=== PATIENT | male | born 1965 | race Caucasian/White ===

== ENCOUNTER 2016-10-05 19:29 | Emergency (ER) | payer OTHER ==
--- NOTE | 2016-10-05 23:45 | DIAGNOSTIC IMAGING REPORT ---
PROCEDURE: XR HIP 2VW W W/O AP PELVIS-RT INDICATION: PAIN TECHNIQUE: AP view of the pelvis and hips with lateral view of the right hip. COMPARISON: CT 01/18/2016 FINDINGS: RIGHT HIP: Right hip prosthesis in place. No dislocation. There is foreshortening of the prosthetic femoral neck. Lucency along the superior aspect of the proximal femoral metaphysis. There is a foreign body encircling the proximal femur and crossing the joint line which appears to be something like a chain of beads. Moderate overlying soft tissue thickening and edema. PELVIS: Normal mineralization. Intact pelvic rings. Mild to moderate degenerative change in the left hip joint with decreased offset of the femoral head neck junction suggestive of hip dysplasia and possibly cam type femoral acetabular impingement. Pelvic bowel gas pattern and adjacent soft tissues are normal. IMPRESSION: 1. Right hip arthroplasty. 2. Osseous lucency adjacent to the proximal femoral prosthesis. In comparison with prior films recommended. Osteomyelitis is not excluded. 3. Hip dysplasia with probably femoral acetabular impingement on the left. 4. A chain of beads type foreign body surrounding/overlying the right hip.
--- NOTE | 2016-10-05 23:49 | DIAGNOSTIC IMAGING REPORT ---
PROCEDURE: US VENOUS - RIGHT EXT INDICATION: PAIN TECHNIQUE: Duplex sonography of the deep venous system in the right lower extremity was performed. Compression and augmentation techniques were used. COMPARISON: None. FINDINGS: Common femoral vein is partially compressible and demonstrates eccentric thickening of the wall. The proximal superficial femoral vein lumen is irregular with wall thickening. Color Doppler imaging demonstrates nonocclusive clot. The mid common femoral vein demonstrates no compressibility or color Doppler flow suggestive of complete occlusion. Adjacent artery is patent. Distal common femoral vein is not well seen secondary to extensive scar tissue. Popliteal vein is completely occluded. Calf veins were not well visualized. There is IV access and one of the calf veins. IMPRESSION: 1. Occlusive deep venous thrombosis from the popliteal vein in the mid superficial femoral vein. Diminutive size of the veins suggests chronic clot. 2. Nonocclusive, irregular clot in the proximal superficial femoral and common femoral veins. 3. Preliminary report provided by the mechanical laboratory technician to the emergency room provider.
--- NOTE | 2016-10-05 23:49 | DIAGNOSTIC IMAGING REPORT ---
PROCEDURE: US VENOUS - RIGHT EXT INDICATION: PAIN TECHNIQUE: Duplex sonography of the deep venous system in the right lower extremity was performed. Compression and augmentation techniques were used. COMPARISON: None. FINDINGS: Common femoral vein is partially compressible and demonstrates eccentric thickening of the wall. The proximal superficial femoral vein lumen is irregular with wall thickening. Color Doppler imaging demonstrates nonocclusive clot. The mid common femoral vein demonstrates no compressibility or color Doppler flow suggestive of complete occlusion. Adjacent artery is patent. Distal common femoral vein is not well seen secondary to extensive scar tissue. Popliteal vein is completely occluded. Calf veins were not well visualized. There is IV access and one of the calf veins. IMPRESSION: 1. Occlusive deep venous thrombosis from the popliteal vein in the mid superficial femoral vein. Diminutive size of the veins suggests chronic clot. 2. Nonocclusive, irregular clot in the proximal superficial femoral and common femoral veins. 3. Preliminary report provided by the plant health care technician to the emergency room provider.
--- NOTE | 2016-10-06 00:03 | ED CLINICAL REPORT ---
Clinical Report - Physicians/Mid Levels [facility] [address] [place] [address] 10/05/2016 19:29 Patient: BERTHA JERONIMO Time Seen: 21:14 Oct 05 2016. Arrived- By private vehicle. Historian- patient. CPT: ER phys charges level 5 (#[id number]). HISTORY OF PRESENT ILLNESS Chief Complaint: LOWER EXTREMITY PAIN. 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 ( Pt reports history of blood clots that he takes blood thinners for. Pt is non weight bearing. Pt states that he is here today for hip pain, "that the other hospital didn't help my pain with." Pt reports he self medicates with heroin for the pain.). He has had trouble walking.). Severity is described as being moderate. The quality is noted to be sharp, aching and "pain". Symptoms located in the area of the right hip. The patient has had difficulty walking. Patient denies an injury. Similar symptoms previously: As bad. ( osteomyelitis due to septic emboli from IVDA.). Recent medical care: The patient was seen recently at another facility and hospitalized. REVIEW OF SYSTEMS No cough, chest pain, difficulty breathing, fever or skin rash. No enlarged lymph nodes, neck pain, back pain, abdominal pain or vomiting. No diarrhea or black stools. All systems otherwise negative, except as recorded above. PAST HISTORY ( Hypertension. Has had back injury. He has had prior back pain. MRSA Infection. Ex heroin user cardiac stents. Coronary artery disease. Myocardial infarction. Depression. This past year he says he has had blood clots , Endocarditis and back pain that required an MRI. 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 Medications: Aspirin Oral. Warfarin Sodium Oral 7.5 mg, daily (except Saturday and Saturday take 6 mg.). Allergies: No Known Drug Allergy. SOCIAL HISTORY Heavy tobacco smoker (cigarette)- 1 pack per day. History of weekly drug use: heroin. No alcohol use. ADDITIONAL NOTES The nursing notes have been reviewed. PHYSICAL EXAM Vital Signs: 10/05/2016 19:42 BP: 154/109. HR: 94. RR: 20. O2 saturation: 98%. Temp: 98.1 F. Appearance: Alert. Appears to be in pain. Patient in moderate distress. Eyes: Eyes normal inspection. ENT: Pharynx normal. Neck: Normal inspection. CVS: Normal heart rate and rhythm. Heart sounds normal. No cardiac murmur. Respiratory: No respiratory distress. Breath sounds normal. Abdomen: Soft and nontender. Back: Normal inspection. Skin: Skin intact. Skin warm. Normal skin color. Extremities: Right hip: moderate tenderness and swelling located in the anterior and lateral aspect of the hip. Limited ROM secondary to pain. Neurovascular intact distally. (Wound intact. No drainage seen.). No laceration, abrasion, ecchymosis or deformity. Neuro: Oriented X 3. No motor deficit. No sensory deficit. LABS, X-RAYS, AND EKG Rt Hip X-ray: No fracture. Normal alignment. Soft tissues normal. (Small lucency proximal femur. Not clear if new or expected post-op finding. Antibiotic beads seen.). Views: 2 view hip series. Technique: good. The X-rays were independently viewed by me, interpreted by the radiologist and discussed with the radiologist. A comparison with prior films reveals that the findings are unchanged. Lower Extremity Sonography: Old clot right femoral-popliteal. Soft tissue fluid collection 2.4 by 1.2 over right hip. A smaller collection is also seen 1.3 cm below the skin. Study type: utilized power Doppler and color Doppler sonography. The exam was performed by a metallographic technician. The study was independently viewed by me, interpreted by the radiologist and discussed with the radiologist. Laboratory Tests: ESR: (CHRISTINA: 10/05/2016 22:24) ( MsgRcvd 10/05/2016 22:58) Final results Test Result Flag Units (Reference) SED RATE WESTERGREN 67 H mm/hr (0-20) CBC w Diff: (CHRISTINA: 10/05/2016 22:24) ( [facility] 10/05/2016 22:39) Final results Test Result Flag Units (Reference) WHITE BLOOD COUNT 7.7 K/uL (4.5-11.5) RED BLOOD COUNT 3.36 L M/uL (4.50-5.90) HEMOGLOBIN 9.3 L gm/dL (13.5-17.5) HEMATOCRIT 28.6 L % (41.0-53.0) MEAN CELL VOLUME 85 fL (80-100) MEAN CORPUSCULAR HGB 28 pg (26-34) MEAN CORPUSCULAR HGB CONC 33 g/dL (31-37) RED CELL DISTRIBUTION WIDTH 17.8 H % (11.6-14.8) PLATELET COUNT 366 K/uL (150-400) NEUTROPHIL % 57.9 % (50-75) LYMPH % 27.6 % (25-40) MONO % 8.9 % (3-14) EOSINOPHIL % 4.9 H % (0-4) BASOPHIL % 0.7 % (0-2) PT with INR: (CHRISTINA: 10/05/2016 22:24) ( [facility] 10/05/2016 22:48) Final results Test Result Flag Units (Reference) INR 1.7 H (0.8-1.2) Low Intensity Therapy: INR 1.5-2.0 PT range 18.5-23.1Mod.Intensity Therapy: INR 2.0-3.0 PT range 23.1-31.5High Intensity Therapy: INR 2.5-3.5 PT range 27.4-35.5High Intensity Therapy 2: INR 3.0-4.0 PT range 31.5-39.3 APTT 36 H SECONDS (24-34) [id number]: (CHRISTINA: 10/05/2016 21:10) ( [facility] 10/05/2016 22:35) Final results Test Result Flag Units (Reference) C-REACTIVE PROTEIN 1.7 H mg/dL (0.0-0.9) CMP: (CHRISTINA: 10/05/2016 22:24) ( MsgRcvd 10/05/2016 23:14) Final results Test Result Flag Units (Reference) GLUCOSE 96 mg/dL (70-110) BUN 14 mg/dL (7-18) CREATININE 0.8 mg/dL (0.6-1.3) Estimated GFR >60 mL/min Estimated GFR- >60 mL/min Note: Persistent reduction over 3 months in eGFR<60 mL/min/1.73 m2 defines CKD. Patients with eGFR values>=60 mL/min/1.73 m2 may also have CKD if evidence ofpersistent proteinuria. Additional information may be foundat [email or web address]. SODIUM 143 mmol/L (136-145) POTASSIUM 3.2 L mmol/L (3.5-5.1) CHLORIDE 107 mmol/L (98-107) CARBON DIOXIDE 30 mmol/L (21-32) CALCIUM 8.9 mg/dL (8.5-10.1) TOTAL PROTEIN 7.7 g/dL (6.4-8.2) ALBUMIN 3.1 L g/dL (3.3-5.0) BILIRUBIN, TOTAL 0.3 mg/dL (0.0-1.0) ALKALINE PHOSPHATASE 110 U/L (46-116) AST (SGOT) 31 U/L (15-37) ALT (SGPT) 25 U/L (12-78) LIPASE 127 U/L (73-393) AMYLASE 74 U/L (25-115) . PROGRESS AND PROCEDURES Course of Care: Radiologist notes : Small lucency in proximal femur. Beads noted in prior films from [place]. Fluid collection right hip that is 2.4 by 1.2 cm on ultrasound. Starts just under the skin. Another small fluid collection 1.3 cm below skin. Patient/family counseled. Old inpatient records reviewed. There are multiple volumes of inpatient records. Disposition: Transferred. CLINICAL IMPRESSION Increasing right hip pain Recent right hip surgery complicated by MRSA osteomyelitis Non-compliant and off antibiotics. Subtherapeutic INR for right leg DVT. Unable to take vancomycin due to neutropenia response. (Electronically signed by Kemar Stanton MD 10/07/2016 23:12)
--- NOTE | 2016-10-06 00:03 | ED CLINICAL REPORT ---
Clinical Report - Physicians/Mid Levels [facility] [address] [place] [address] 10/05/2016 19:29 Patient: BERTHA JERONIMO Time Seen: 21:14 Oct 05 2016. Arrived- By private vehicle. Historian- patient. CPT: ER phys charges level 5 (#[id number]). HISTORY OF PRESENT ILLNESS Chief Complaint: LOWER EXTREMITY PAIN. 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 ( Pt reports history of blood clots that he takes blood thinners for. Pt is non weight bearing. Pt states that he is here today for hip pain, "that the other hospital didn't help my pain with." Pt reports he self medicates with heroin for the pain.). He has had trouble walking.). Severity is described as being moderate. The quality is noted to be sharp, aching and "pain". Symptoms located in the area of the right hip. The patient has had difficulty walking. Patient denies an injury. Similar symptoms previously: As bad. ( osteomyelitis due to septic emboli from IVDA.). Recent medical care: The patient was seen recently at another facility and hospitalized. REVIEW OF SYSTEMS No cough, chest pain, difficulty breathing, fever or skin rash. No enlarged lymph nodes, neck pain, back pain, abdominal pain or vomiting. No diarrhea or black stools. All systems otherwise negative, except as recorded above. PAST HISTORY ( Hypertension. Has had back injury. He has had prior back pain. MRSA Infection. Ex heroin user cardiac stents. Coronary artery disease. Myocardial infarction. Depression. This past year he says he has had blood clots , Endocarditis and back pain that required an MRI. 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 Medications: Aspirin Oral. Warfarin Sodium Oral 7.5 mg, daily (except Saturday and Saturday take 6 mg.). Allergies: No Known Drug Allergy. SOCIAL HISTORY Heavy tobacco smoker (cigarette)- 1 pack per day. History of weekly drug use: heroin. No alcohol use. ADDITIONAL NOTES The nursing notes have been reviewed. PHYSICAL EXAM Vital Signs: 10/05/2016 19:42 BP: 154/109. HR: 94. RR: 20. O2 saturation: 98%. Temp: 98.1 F. Appearance: Alert. Appears to be in pain. Patient in moderate distress. Eyes: Eyes normal inspection. ENT: Pharynx normal. Neck: Normal inspection. CVS: Normal heart rate and rhythm. Heart sounds normal. No cardiac murmur. Respiratory: No respiratory distress. Breath sounds normal. Abdomen: Soft and nontender. Back: Normal inspection. Skin: Skin intact. Skin warm. Normal skin color. Extremities: Right hip: moderate tenderness and swelling located in the anterior and lateral aspect of the hip. Limited ROM secondary to pain. Neurovascular intact distally. (Wound intact. No drainage seen.). No laceration, abrasion, ecchymosis or deformity. Neuro: Oriented X 3. No motor deficit. No sensory deficit. LABS, X-RAYS, AND EKG Rt Hip X-ray: No fracture. Normal alignment. Soft tissues normal. (Small lucency proximal femur. Not clear if new or expected post-op finding. Antibiotic beads seen.). Views: 2 view hip series. Technique: good. The X-rays were independently viewed by me, interpreted by the radiologist and discussed with the radiologist. A comparison with prior films reveals that the findings are unchanged. Lower Extremity Sonography: Old clot right femoral-popliteal. Soft tissue fluid collection 2.4 by 1.2 over right hip. A smaller collection is also seen 1.3 cm below the skin. Study type: utilized power Doppler and color Doppler sonography. The exam was performed by a truck technician. The study was independently viewed by me, interpreted by the radiologist and discussed with the radiologist. Laboratory Tests: ESR: (CHRISTINA: 10/05/2016 22:24) ( MsgRcvd 10/05/2016 22:58) Final results Test Result Flag Units (Reference) SED RATE WESTERGREN 67 H mm/hr (0-20) CBC w Diff: (CHRISTINA: 10/05/2016 22:24) ( [facility] 10/05/2016 22:39) Final results Test Result Flag Units (Reference) WHITE BLOOD COUNT 7.7 K/uL (4.5-11.5) RED BLOOD COUNT 3.36 L M/uL (4.50-5.90) HEMOGLOBIN 9.3 L gm/dL (13.5-17.5) HEMATOCRIT 28.6 L % (41.0-53.0) MEAN CELL VOLUME 85 fL (80-100) MEAN CORPUSCULAR HGB 28 pg (26-34) MEAN CORPUSCULAR HGB CONC 33 g/dL (31-37) RED CELL DISTRIBUTION WIDTH 17.8 H % (11.6-14.8) PLATELET COUNT 366 K/uL (150-400) NEUTROPHIL % 57.9 % (50-75) LYMPH % 27.6 % (25-40) MONO % 8.9 % (3-14) EOSINOPHIL % 4.9 H % (0-4) BASOPHIL % 0.7 % (0-2) PT with INR: (CHRISTINA: 10/05/2016 22:24) ( [facility] 10/05/2016 22:48) Final results Test Result Flag Units (Reference) INR 1.7 H (0.8-1.2) Low Intensity Therapy: INR 1.5-2.0 PT range 18.5-23.1Mod.Intensity Therapy: INR 2.0-3.0 PT range 23.1-31.5High Intensity Therapy: INR 2.5-3.5 PT range 27.4-35.5High Intensity Therapy 2: INR 3.0-4.0 PT range 31.5-39.3 APTT 36 H SECONDS (24-34) [id number]: (CHRISTINA: 10/05/2016 21:10) ( [facility] 10/05/2016 22:35) Final results Test Result Flag Units (Reference) C-REACTIVE PROTEIN 1.7 H mg/dL (0.0-0.9) CMP: (CHRISTINA: 10/05/2016 22:24) ( MsgRcvd 10/05/2016 23:14) Final results Test Result Flag Units (Reference) GLUCOSE 96 mg/dL (70-110) BUN 14 mg/dL (7-18) CREATININE 0.8 mg/dL (0.6-1.3) Estimated GFR >60 mL/min Estimated GFR- >60 mL/min Note: Persistent reduction over 3 months in eGFR<60 mL/min/1.73 m2 defines CKD. Patients with eGFR values>=60 mL/min/1.73 m2 may also have CKD if evidence ofpersistent proteinuria. Additional information may be foundat [email or web address]. SODIUM 143 mmol/L (136-145) POTASSIUM 3.2 L mmol/L (3.5-5.1) CHLORIDE 107 mmol/L (98-107) CARBON DIOXIDE 30 mmol/L (21-32) CALCIUM 8.9 mg/dL (8.5-10.1) TOTAL PROTEIN 7.7 g/dL (6.4-8.2) ALBUMIN 3.1 L g/dL (3.3-5.0) BILIRUBIN, TOTAL 0.3 mg/dL (0.0-1.0) ALKALINE PHOSPHATASE 110 U/L (46-116) AST (SGOT) 31 U/L (15-37) ALT (SGPT) 25 U/L (12-78) LIPASE 127 U/L (73-393) AMYLASE 74 U/L (25-115) . PROGRESS AND PROCEDURES Course of Care: Radiologist notes : Small lucency in proximal femur. Beads noted in prior films from [place]. Fluid collection right hip that is 2.4 by 1.2 cm on ultrasound. Starts just under the skin. Another small fluid collection 1.3 cm below skin. Patient/family counseled. Old inpatient records reviewed. There are multiple volumes of inpatient records. Disposition: Transferred. CLINICAL IMPRESSION Increasing right hip pain Recent right hip surgery complicated by MRSA osteomyelitis Non-compliant and off antibiotics. Subtherapeutic INR for right leg DVT. Unable to take vancomycin due to neutropenia response. (Electronically signed by Kemar Stanton MD 10/07/2016 23:12)
--- NOTE | 2016-10-06 00:04 | ED NURSING NOTES ---
Clinical Report - Nurses [facility] [address] [place] [address] 10/05/2016 19:29 Patient: BERTHA JERONIMO TRIAGE Triage time 19:Oct 05 2016. Acuity: LEVEL 3. Chief Complaint: RIGHT LOWER EXTREMITY PAIN. 19:42 10/05/16. Alert. No acute distress. SEPSIS SCREEN: Sepsis Screen. Negative (no infection suspected/documented). JAME COMA SCORE: Jame Coma Scale: 15- eyes open spontaneously (4); best verbal response- oriented x 4 (5); best motor response- obeys commands (6). --19:42 Carmina Keita 19:42 10/05/16. BP: 154/109. HR: 94. RR: 20. O2 saturation: 98%. Temp: 98.1 F. Pain level now 9/10. --19:42 Carmina Keita. Weight: 90.7 kg stated. Height/Length: 66 inches Per Patient. BMI: 32.3. --19:36 Carmina Keita. Medications Warfarin Sodium Oral 7.5 mg, daily (except Saturday and Saturday take 6 mg.). --19:38 Carmina Keita Aspirin Oral. --19:39 Carmina Keita. Medication/allergy information source: the patient. --19:42 Carmina Keita. Allergies Vancomycin. --23:38 Carmina Keita The following entry was struck by Carmina Keita, 23:37 (10/05/16) Reason - other(Patient remembered allergy). <<STRICKEN ENTRY-- No Known Drug Allergy. --19:38 Carmina Keita --END STRIKE>>. History Arrived by EMS. Historian: EMS. Primary physician (Sundar). This occurred (3 weeks ago.). ( Pt reports history of blood clots that he takes blood thinners for. Pt is non weight bearing. Pt states that he is here today for hip pain, "that the other hospital didn't help my pain with." Pt reports he self medicates with heroin for the pain.). He has had trouble walking. 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 HR: 100. O2 saturation: 100 % room air. ( Post op pain in the R hip (3 weeks ago). Pt has a history of heroin use and states that he injected parasites from his heroin.). PAST MEDICAL HX: Hypertension. Deep vein thrombosis. Infections. No history of diabetes mellitus. No history of peripheral neuropathy. Tetanus status: up-to-date. Immunizations: up-to-date. SOCIAL HX: Heavy tobacco smoker (cigarette)- 1 pack per day. History of drug use: heroin. Recently used drugs today. No alcohol use. NUTRITIONAL RISK ASSESSMENT: The nutritional risk assessment revealed no deficiencies. FUNCTIONAL ASSESSMENT: Functional assessment: no impairments noted. LEARNING NEEDS ASSESSMENT: The learning needs assessment revealed no barriers. FALL RISK ASSESSMENT: Fall risk assessment completed. Risk factors identified include severe pain. Fall interventions initiated. Patient placed on stretcher. Side rails up x2. Brakes on Bed in low position. Patient visible from nurses' station. Family at bedside. Call light in reach of patient. Instructed not to get up without assistance. SKIN INTEGRITY ASSESSMENT: Skin integrity risk assessment completed. No skin integrity risk identified. --19:42 Carmina Keita SOCIAL HX: History of drug use: cocaine, heroin, methamphetamines. --23:08 Carmina Keita. PROBLEMS: Myocardial Infarction. Coronary Artery Disease. Back Pain. Back Injury. MRSA Infection. Hypertension. Fall. Contusion. Hypertension. Depression. Heart attack. --19:39 Carmina Keita COPD - Chronic Obstructive Pulmonary Disease. --19:41 Carmina Keita. ADDITIONAL SURGERIES: Cardiac stent. Hip Surgery. --19:39 Carmina Keita. Assessment The patient states feels the same. --19:42 Carmina Keita. Interventions ID band on patient. --19:42 Carmina Keita. PHYSICAL ASSESSMENT 19:43 10/05/16. To room via stretcher. Patient gowned. GENERAL / NEURO / PSYCH: Oriented X 4. Alert. Appears in no acute distress. EXTREMITIES: Extremity pulses are within normal limits. Neuro-vascular status intact to the extremity. No lower extremity edema. Normal gait. Right hip: tenderness (has surgical wound, stitches intact, well accomodated, no redness or drainage noted.). SKIN: Skin is warm and dry. --19:43 Carmina Keita. NURSING PROGRESS NOTES 19:43 10/05/16. The plan of care for this patient has been created. Patient gowned. Reassurance given. Two patient identifiers checked. Call light placed in reach. Side rails up x 2. Bed placed in lowest position. Brakes of bed on. Patient ready for evaluation- chart flagged and ED physician and CONTRACT TECHNICIAN notified. --19:43 Carmina Keita Records [place] [facility]. --19:49 Norberto, Cornelia, ER Tech1 20:21 10/05/2016 Two (2) unsuccessful IV access attempts including the right antecubital space and left leg. Applied pressure dressing (Attempted by this RN and SYDNIE Alexander). --20:47 Carmina Keita 20:49 10/05/16. ( Patient refuses further IV attempts from both RNs, "I'm not gonna be a practice target. Send in your most experienced nurse." Patient reports bad veins, "even before [he] started using heroin."). --20:54 Carmina Keita 20:50 10/05/16. ( Patient states, "I'm not gonna be a practice target. I'll just leave."). --20:55 Carmina Keita 21:00 10/05/2016 One (1) unsuccessful IV access attempt including the right antecubital space. Applied bandaid. --21:10 Grecia Neri R.N. 21:27 10/05/16. BP: 131/80. HR: 90. RR: 15. O2 saturation: 100% on room air. Temp: 98.2 F. Pain level now: 10/01. --21:27 Carmina Keita 21:27 10/05/16. ( Patient aware of need for urine sample, "my urine is fine."). --23:08 Carmina Keita 21:31 10/05/16. ( Lab in room for blood draw.). --21:51 Carmina Keita 22:10. Checked patient name and birthdate. Blood samples drawn from the right side by tech and sent to lab. (3 mL blood drawn, taken to lab). --22:14 Cornelia Thornton, NADYA Tech1 22:26 10/05/2016 Site #1 started via IV in the right leg with an 20g angiocath, with aseptic technique and good blood return; one attempt. Blood drawn: rainbow set. Labeled in the presence of the patient and sent to the lab. Saline lock flushed with 10 mL saline (Done by SYDNIE Maravilla). --22:31 Carmina Keita ( Ultrasound at bedside). --22:43 Vanessa Zimmerman 23:37 10/05/2016 Dilaudid (HYDROmorphone HCl PF) IVP 1 mg given over 30 second(s) via site #1. Allergies verified, confirmed 5 rights and sedative warning given to the patient. IV patency established. IV site checked: no pain, redness, or swelling. IV flushed thoroughly pre- and post-medication administration. IVP given by RN. --23:37 Carmina Keita ( Report called to [phone]). --00:50 Carmina Keita 01:10/06/2016 Site #[address] upon transfer; patent, no pain and no signs of infection or infiltration. Flushed with 10 mL saline; flushes easily. --01:10 Carmina Keita 01:10/06/2016 IV Saline Lock Drip IV Continued: at the rate of 0 mL/hr. 0 mL remaining. --01:10 Carmina Keita. DISPOSITION / DISCHARGE 00:49 10/06/16. Transferred to [facility]. Transported via stretcher by EMS with IV. Report was given to a nurse via a phone call. Report included patient's care, treatment, medications, reviewed medication reconcilliation, and condition (including any recent changes or anticipated changes). All questions were answered. Report was acknowledged and care was transferred. (Winsome). Patient's personal items include, Belongings sent with patient. --00:49 Carmina Keita 00:50 10/06/16. Condition at departure: unchanged. The goals identified in the patient's plan of care were met. Fall risk assessment completed. Risk factors identified include severe pain and patient impairment of mobility. JAME COMA SCORE: [place] Coma Scale: 15- eyes open spontaneously (4); best verbal response- oriented x 4 (5); best motor response- obeys commands (6). --00:50 Carmina Keita 00:50 10/06/16. BP: 116/64. HR: 76. RR: 15. O2 saturation: 77%. Pain level now 07/02. --00:50 Carmina Keita. Locked/Released at 10/06/2016 1:17 by Carmina Keita,
--- NOTE | 2016-10-06 00:04 | ED ORDER SUMMARY ---
..... Patient: BERTHA JERONIMO OrderSheet [facility] VisitID: [id number] [place] [address] 51y, M Registration Date/Time: 10/05/2016 ORDER SHEET Weight: 90.7 kg (stated) Allergies: Vancomycin GENERAL ORDERS: Hip 2V Right w AP Pelvis Urgent (20:10/05/2016 Yelitza CAPPS) (Ack 20:09 AMcQuoid ER Tech1) (20:31 MCampbell) CBC w Diff Urgent (20:10/05/2016 Yelitza CAPPS) (Ack 20:09 AMcQuoid ER Tech1) (22:30 ASchmuck) CMP Urgent (20:10/05/2016 Yelitza CAPPS) (Ack 20:09 AMcQuoid ER Tech1) (22:30 ASchmuck) Amylase Urgent (20:10/05/2016 Yelitza CAPPS) (Ack 20:09 AMcQuoid ER Tech1) (22:30 ASchmuck) Lipase Urgent (20:10/05/2016 Yelitza CAPPS) (Ack 20:09 AMcQuoid ER Tech1) (22:30 ASchmuck) UA-Culture if indicated Urgent (20:10/05/2016 Yelitza CAPPS) (Ack 20:09 AMcQuoid ER Tech1) (Cancelled: Patient Refusal1:16 ASchmuck) Urine Drug Screen Urgent (20:10/05/2016 Yelitza CAPPS) (Ack 20:09 AMcQuoid ER Tech1) (Cancelled: Patient Refusal1:16 ASchmuck) PT with INR Urgent (20:10/05/2016 Yelitza CAPPS) (Ack 20:09 AMcQuoid ER Tech1) (22:31 ASchmuck) PTT Urgent (20:10/05/2016 Yelitza CAPPS) (Ack 20:09 AMcQuoid ER Tech1) (22:31 ASchmuck) Old Records (lisa : right hip surgery and recent hospitalization.) (21:29 10/05/2016 Nikita CAPPS) (21:44 ASchmuck) CRP Urgent (21:30 10/05/2016 Nikita CAPPS) (Ack 21:48 AMcQuoid ER Tech1) (22:28 AMcQuoid ER Tech1) ESR Urgent (21:30 10/05/2016 Nikita CAPPS) (Ack 21:48 AMcQuoid ER Tech1) (22:31 ASchmuck) US Venous Right Urgent (21:52 10/05/2016 Yelitza CAPPS) (Ack 21:54 AMcQuoid ER Tech1) (23:01 HSoule) US Soft Tissue Anywhere (R thigh) Urgent (21:52 10/05/2016 Yelitza CAPPS) (Ack 21:54 AMcQuoid ER Tech1) (23:01 HSoule) MEDICATION ORDERS: IV FLUIDS: IV Saline Lock (20:07 10/05/2016 Yelitza CAPPS) (Ack 20:46 ASchmuck) (22:31 ASchmuck) Dilaudid IV 1 mg (NOW) (23:30 10/05/2016 Nikita CAPPS) (Ack 23:30 ASchmuck) (23:37 ASchmuck) ORDER SHEET NOTES: [Electronically signed by Carmina Keita (01:10/06/2016)] [Electronically signed by Kemar Stanton MD (23:12 10/07/2016)] [Electronically locked/signed by Carmina Keita (:10/06/2016)]
--- NOTE | 2016-10-06 00:04 | ED ORDER SUMMARY ---
..... Patient: BERTHA JERONIMO OrderSheet [facility] VisitID: [id number] [place] [address] 51y, M Registration Date/Time: 10/05/2016 ORDER SHEET Weight: 90.7 kg (stated) Allergies: Vancomycin GENERAL ORDERS: Hip 2V Right w AP Pelvis Urgent (20:10/05/2016 Yelitza CAPPS) (Ack 20:09 AMcQuoid ER Tech1) (20:31 MCampbell) CBC w Diff Urgent (20:10/05/2016 Yelitza CAPPS) (Ack 20:09 AMcQuoid ER Tech1) (22:30 ASchmuck) CMP Urgent (20:10/05/2016 Yelitza CAPPS) (Ack 20:09 AMcQuoid ER Tech1) (22:30 ASchmuck) Amylase Urgent (20:10/05/2016 Yelitza CAPPS) (Ack 20:09 AMcQuoid ER Tech1) (22:30 ASchmuck) Lipase Urgent (20:10/05/2016 Yelitza CAPPS) (Ack 20:09 AMcQuoid ER Tech1) (22:30 ASchmuck) UA-Culture if indicated Urgent (20:10/05/2016 Yelitza CAPPS) (Ack 20:09 AMcQuoid ER Tech1) (Cancelled: Patient Refusal1:16 ASchmuck) Urine Drug Screen Urgent (20:10/05/2016 Yelitza CAPPS) (Ack 20:09 AMcQuoid ER Tech1) (Cancelled: Patient Refusal1:16 ASchmuck) PT with INR Urgent (20:10/05/2016 Yelitza CAPPS) (Ack 20:09 AMcQuoid ER Tech1) (22:31 ASchmuck) PTT Urgent (20:10/05/2016 Yelitza CAPPS) (Ack 20:09 AMcQuoid ER Tech1) (22:31 ASchmuck) Old Records (lisa : right hip surgery and recent hospitalization.) (21:29 10/05/2016 Nikita CAPPS) (21:44 ASchmuck) CRP Urgent (21:30 10/05/2016 Nikita ACPPS) (Ack 21:48 AMcQuoid ER Tech1) (22:28 AMcQuoid ER Tech1) ESR Urgent (21:30 10/05/2016 Nikita CAPPS) (Ack 21:48 AMcQuoid ER Tech1) (22:31 ASchmuck) US Venous Right Urgent (21:52 10/05/2016 Yelitza CAPPS) (Ack 21:54 AMcQuoid ER Tech1) (23:01 HSoule) US Soft Tissue Anywhere (R thigh) Urgent (21:52 10/05/2016 Yelitza CAPPS) (Ack 21:54 AMcQuoid ER Tech1) (23:01 HSoule) MEDICATION ORDERS: IV FLUIDS: IV Saline Lock (20:07 10/05/2016 Yelitza CAPPS) (Ack 20:46 ASchmuck) (22:31 ASchmuck) Dilaudid IV 1 mg (NOW) (23:30 10/05/2016 Nikita CAPPS) (Ack 23:30 ASchmuck) (23:37 ASchmuck) ORDER SHEET NOTES: [Electronically signed by Carmina Keita (01:10/06/2016)] [Electronically signed by Kemar Stanton MD (23:12 10/07/2016)] [Electronically locked/signed by Carmina Keita (:10/06/2016)]
--- NOTE | 2016-10-06 00:04 | ED NURSING NOTES ---
Clinical Report - Nurses [facility] [address] [place] [address] 10/05/2016 19:29 Patient: BERTHA JERONIMO TRIAGE Triage time 19:Oct 05 2016. Acuity: LEVEL 3. Chief Complaint: RIGHT LOWER EXTREMITY PAIN. 19:42 10/05/16. Alert. No acute distress. SEPSIS SCREEN: Sepsis Screen. Negative (no infection suspected/documented). JAME COMA SCORE: Jame Coma Scale: 15- eyes open spontaneously (4); best verbal response- oriented x 4 (5); best motor response- obeys commands (6). --19:42 Carmina Keita 19:42 10/05/16. BP: 154/109. HR: 94. RR: 20. O2 saturation: 98%. Temp: 98.1 F. Pain level now 9/10. --19:42 Carmina Keita. Weight: 90.7 kg stated. Height/Length: 66 inches Per Patient. BMI: 32.3. --19:36 Carmina Keita. Medications Warfarin Sodium Oral 7.5 mg, daily (except Saturday and Saturday take 6 mg.). --19:38 Carmina Keita Aspirin Oral. --19:39 Carmina Keita. Medication/allergy information source: the patient. --19:42 Carmina Keita. Allergies Vancomycin. --23:38 Carmina Keita The following entry was struck by Carmina Keita, 23:37 (10/05/16) Reason - other(Patient remembered allergy). <<STRICKEN ENTRY-- No Known Drug Allergy. --19:38 Carmina Keita --END STRIKE>>. History Arrived by EMS. Historian: EMS. Primary physician (Sundar). This occurred (3 weeks ago.). ( Pt reports history of blood clots that he takes blood thinners for. Pt is non weight bearing. Pt states that he is here today for hip pain, "that the other hospital didn't help my pain with." Pt reports he self medicates with heroin for the pain.). He has had trouble walking. 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 HR: 100. O2 saturation: 100 % room air. ( Post op pain in the R hip (3 weeks ago). Pt has a history of heroin use and states that he injected parasites from his heroin.). PAST MEDICAL HX: Hypertension. Deep vein thrombosis. Infections. No history of diabetes mellitus. No history of peripheral neuropathy. Tetanus status: up-to-date. Immunizations: up-to-date. SOCIAL HX: Heavy tobacco smoker (cigarette)- 1 pack per day. History of drug use: heroin. Recently used drugs today. No alcohol use. NUTRITIONAL RISK ASSESSMENT: The nutritional risk assessment revealed no deficiencies. FUNCTIONAL ASSESSMENT: Functional assessment: no impairments noted. LEARNING NEEDS ASSESSMENT: The learning needs assessment revealed no barriers. FALL RISK ASSESSMENT: Fall risk assessment completed. Risk factors identified include severe pain. Fall interventions initiated. Patient placed on stretcher. Side rails up x2. Brakes on Bed in low position. Patient visible from nurses' station. Family at bedside. Call light in reach of patient. Instructed not to get up without assistance. SKIN INTEGRITY ASSESSMENT: Skin integrity risk assessment completed. No skin integrity risk identified. --19:42 Carmina Keita SOCIAL HX: History of drug use: cocaine, heroin, methamphetamines. --23:08 Carmina Keita. PROBLEMS: Myocardial Infarction. Coronary Artery Disease. Back Pain. Back Injury. MRSA Infection. Hypertension. Fall. Contusion. Hypertension. Depression. Heart attack. --19:39 Carmina Keita COPD - Chronic Obstructive Pulmonary Disease. --19:41 Carmina Keita. ADDITIONAL SURGERIES: Cardiac stent. Hip Surgery. --19:39 Carmina Keita. Assessment The patient states feels the same. --19:42 Carmina Keita. Interventions ID band on patient. --19:42 Carmina Keita. PHYSICAL ASSESSMENT 19:43 10/05/16. To room via stretcher. Patient gowned. GENERAL / NEURO / PSYCH: Oriented X 4. Alert. Appears in no acute distress. EXTREMITIES: Extremity pulses are within normal limits. Neuro-vascular status intact to the extremity. No lower extremity edema. Normal gait. Right hip: tenderness (has surgical wound, stitches intact, well accomodated, no redness or drainage noted.). SKIN: Skin is warm and dry. --19:43 Carmina Keita. NURSING PROGRESS NOTES 19:43 10/05/16. The plan of care for this patient has been created. Patient gowned. Reassurance given. Two patient identifiers checked. Call light placed in reach. Side rails up x 2. Bed placed in lowest position. Brakes of bed on. Patient ready for evaluation- chart flagged and ED physician and CALENDER SUPERVISOR notified. --19:43 Carmina Keita [place] [facility] [place] --19:49 Norberto, Cornelia, ER Tech1 20:21 10/05/2016 Two (2) unsuccessful IV access attempts including the right antecubital space and left leg. Applied pressure dressing (Attempted by this RN and SYDNIE Alexander). --20:47 Carmina Keita 20:49 10/05/16. ( Patient refuses further IV attempts from both RNs, "I'm not gonna be a practice target. Send in your most experienced nurse." Patient reports bad veins, "even before [he] started using heroin."). --20:54 Carmina Keita 20:50 10/05/16. ( Patient states, "I'm not gonna be a practice target. I'll just leave."). --20:55 Carmina Keita 21:00 10/05/2016 One (1) unsuccessful IV access attempt including the right antecubital space. Applied bandaid. --21:10 Grecia Neri R.N. 21:27 10/05/16. BP: 131/80. HR: 90. RR: 15. O2 saturation: 100% on room air. Temp: 98.2 F. Pain level now: 10/01. --21:27 Carmina Keita 21:27 10/05/16. ( Patient aware of need for urine sample, "my urine is fine."). --23:08 Carmina Keita 21:31 10/05/16. ( Lab in room for blood draw.). --21:51 Carmina Keita 22:10. Checked patient name and birthdate. Blood samples drawn from the right side by tech and sent to lab. (3 mL blood drawn, taken to lab). --22:14 Cornelia Thornton, NADYA Tech1 22:26 10/05/2016 Site #1 started via IV in the right leg with an 20g angiocath, with aseptic technique and good blood return; one attempt. Blood drawn: rainbow set. Labeled in the presence of the patient and sent to the lab. Saline lock flushed with 10 mL saline (Done by SYDNIE Maravilla). --22:31 Carmina Keita ( Ultrasound at bedside). --22:43 Vanessa Zimmerman 23:37 10/05/2016 Dilaudid (HYDROmorphone HCl PF) IVP 1 mg given over 30 second(s) via site #1. Allergies verified, confirmed 5 rights and sedative warning given to the patient. IV patency established. IV site checked: no pain, redness, or swelling. IV flushed thoroughly pre- and post-medication administration. IVP given by RN. --23:37 Carmina Keita ( Report called to [phone]). --00:50 Carmina Keita 01:10/06/2016 Site #[address] upon transfer; patent, no pain and no signs of infection or infiltration. Flushed with 10 mL saline; flushes easily. --01:10 Carmina Keita 01:10/06/2016 IV Saline Lock Drip IV Continued: at the rate of 0 mL/hr. 0 mL remaining. --01:10 Carmina Keita. DISPOSITION / DISCHARGE 00:49 10/06/16. Transferred to [facility]. Transported via stretcher by EMS with IV. Report was given to a nurse via a phone call. Report included patient's care, treatment, medications, reviewed medication reconcilliation, and condition (including any recent changes or anticipated changes). All questions were answered. Report was acknowledged and care was transferred. (Winsome). Patient's personal items include, Belongings sent with patient. --00:49 Carmina Keita 00:50 10/06/16. Condition at departure: unchanged. The goals identified in the patient's plan of care were met. Fall risk assessment completed. Risk factors identified include severe pain and patient impairment of mobility. JAME COMA SCORE: [place] Coma Scale: 15- eyes open spontaneously (4); best verbal response- oriented x 4 (5); best motor response- obeys commands (6). --00:50 Carmina Keita 00:50 10/06/16. BP: 116/64. HR: 76. RR: 15. O2 saturation: 77%. Pain level now 07/02. --00:50 Carmina Keita. Locked/Released at 10/06/2016 1:17 by Carmina Keita,
--- NOTE | 2016-10-06 00:05 | DIAGNOSTIC IMAGING REPORT ---
PROCEDURE: US SOFT TISSUE ANYWHERE INDICATION: PAIN TECHNIQUE: Warner scale and color Doppler sonographic images of the lateral hip area under the incision were obtained COMPARISON: None. FINDINGS: Deep to the incision, there is a linear fluid collection which extends proximally 2.4 centimeters from the skin surface into the subcutaneous tissue. This is about 12 mm at its maximal width. This fluid collection extends for a few centimeters along the incision in the cranial direction where the fluid extends about 1.3 cm deep to the skin surface. Color Doppler imaging demonstrates no significant hyperemia around the largest portion of the fluid collection. There is good through transmission. IMPRESSION: 1. Subdermal/subcutaneous avascular fluid collection suggestive of seroma which extends to the skin surface in the line with the incision. No hyperemia to suggest abscess. 2. Discussed with Dr. Stanton in the emergency room.
--- NOTE | 2016-10-07 23:13 | ED MED RECONCILIATION SUMMARY ---
Patient: KANDACEBERTHA LUIS Medication Reconciliation Report [facility] VisitID: [id number] [address] [place] [address] 51y, M Registration Date/Time: 10/05/2016 Weight: 90.7 kg Height/Length: 66 in. BMI: 32.3 ALLERGIES: Vancomycin The patient's Home Medications are listed below: THE FOLLOWING MEDICATIONS NEED TO BE RECONCILED: Aspirin Oral Warfarin Sodium Oral 7.5 mg, daily, except Saturday and Saturday take 6 mg. The source(s) of the original Home Medication information: patient The following Medications were given to the patient in the Emergency Department: Dilaudid [IVP] IVP 1 mg, administered: 10/05/2016 11:37:00 PM The following Medications were prescribed to the patient: None.
--- NOTE | 2016-10-07 23:13 | ED DISCHARGE INSTRUCTIONS ---
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 Subtherapeutic INR for right leg DVT. Unable to take vancomycin due to neutropenia response. (Electronically signed by Kemar Stanton MD 10/07/2016 23:12)
--- NOTE | 2016-10-07 23:13 | ED MAR SUMMARY ---
..... Medication Administration Record [facility] [address] [place] [address] Patient: BERTHA JERONIMO Visit ID: [id number] 51y, M Weight: 90.7 kg Height/Length: 66 in BMI: 32.3 ALLERGIES: Vancomycin Given 23:37 10/05/2016 Carmina Keita, Medication Administered: DILAUDID [IVP] (HYDROMORPHONE HCL PF), Dose: 1 mg IVP over 30 second(s), Site: #1 right leg. Medication Ordered: Dilaudid IV 1 mg (NOW).
--- NOTE | 2016-10-07 23:13 | ED DISCHARGE INSTRUCTIONS ---
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 Subtherapeutic INR for right leg DVT. Unable to take vancomycin due to neutropenia response. (Electronically signed by Kemar Stanton MD 10/07/2016 23:12)
--- NOTE | 2016-10-07 23:13 | ED MED RECONCILIATION SUMMARY ---
Patient: KANDACEBERTHA LUIS Medication Reconciliation Report [facility] VisitID: [id number] [address] [place] [address] 51y, M Registration Date/Time: 10/05/2016 Weight: 90.7 kg Height/Length: 66 in. BMI: 32.3 ALLERGIES: Vancomycin The patient's Home Medications are listed below: THE FOLLOWING MEDICATIONS NEED TO BE RECONCILED: Aspirin Oral Warfarin Sodium Oral 7.5 mg, daily, except Saturday and Saturday take 6 mg. The source(s) of the original Home Medication information: patient The following Medications were given to the patient in the Emergency Department: Dilaudid [IVP] IVP 1 mg, administered: 10/05/2016 11:37:00 PM The following Medications were prescribed to the patient: None.
--- NOTE | 2016-10-07 23:13 | ED MAR SUMMARY ---
..... Medication Administration Record [facility] [address] [place] [address] Patient: BERTHA JERONIMO Visit ID: [id number], M Weight: 90.7 kg Height/Length: 66 in BMI: 32.3 ALLERGIES: Vancomycin Given 23:37 10/05/2016 Carmina Keita, Medication Administered: DILAUDID [IVP] (HYDROMORPHONE HCL PF), Dose: 1 mg IVP over 30 second(s), Site: #1 right leg. Medication Ordered: Dilaudid IV 1 mg (NOW).
== END 2016-10-06 00:06 | disposition home or self-care (01) ==
LOC: ED SRH 19:29
DX: I82.401 Acute embolism and thrombosis of unspecified deep veins of right lower extremity (principal); R79.1 Abnormal coagulation profile; D70.9 Neutropenia, unspecified; M25.551 Pain in right hip; M86.8X8 Other osteomyelitis, other site; Z86.14 Personal history of Methicillin resistant Staphylococcus aureus infection; Z91.14 Patient's other noncompliance with medication regimen; I10 Essential (primary) hypertension; J44.9 Chronic obstructive pulmonary disease, unspecified; Z79.01 Long term (current) use of anticoagulants; Z86.718 Personal history of other venous thrombosis and embolism; I25.10 Atherosclerotic heart disease of native coronary artery without angina pectoris; I25.2 Old myocardial infarction; F11.10 Opioid abuse, uncomplicated